=== PATIENT | female | born 1960 | race Caucasian/White ===

== ENCOUNTER 2018-08-06 00:38 | Day surgery (SDC) | payer OTHER ==
[~2018-08-06] VITALS: Ht 165.1 cm; Wt 93.9 kg
[2018-08-06] VITALS (7 sets, daily range): BP systolic 113–150; BP diastolic 73–96
[~2018-08-06 00:38] MED LIST: DOC100 PO; ESTR1PAT89 TD; LEV25 PO; LEVO125T77 PO; LEVO137T22 PO; LIO5 PO; LIOT25TA19 PO; ONDA4TAB9 PO; PER PO
[2018-08-06] MEDS ORDERED: PROPOFOL EMUL(*) 10MG/ML 20 ML 60 ML ONE (09:55)
[2018-08-06] MEDS ORDERED: KETAMINE HCL 500 MG/10 ML VIAL ONE (09:58)
[2018-08-06] MEDS ORDERED: LIDOCAINE/SOD BICARB 8.4% SYR ID ONE (11:40)
[2018-08-06] MEDS ORDERED: NORMOSOL R SOLN(*) 1000 ML BAG 1,000 ML IV PRN (11:40)
== END 2018-08-06 11:10 | disposition home or self-care (01) ==
LOC: OR 00:38
PROVIDERS: ATTEND Internal Medicine Gastroenterology
DX: Z12.11 Encounter for screening for malignant neoplasm of colon (principal); K64.8 Other hemorrhoids; K57.30 Diverticulosis of large intestine without perforation or abscess without bleeding
CPT/HCPCS: 00812; 45378; J2704